=== PATIENT | female | born 1965 | race Caucasian/White ===

== ENCOUNTER → 2018-01-08 | Outpatient (CLI) | payer MEDICARE, OTHER ==
[~2018-01-08] MED LIST: ANEXSIA 7.5-651 EACH PO; TIZANIDINE HCL4 MG PO
== END | disposition home or self-care (01) ==
LOC: CDC 10:38
DX: Z01.810 Encounter for preprocedural cardiovascular examination (principal); K43.2 Incisional hernia without obstruction or gangrene; R00.0 Tachycardia, unspecified; R94.31 Abnormal electrocardiogram [ECG] [EKG]
CPT/HCPCS: 93000

== ENCOUNTER 2018-01-18 06:30 | Day surgery (SDC) | payer OTHER ==
[~2018-01-18] VITALS: Ht 154.9 cm; Wt 83.9 kg
[~2018-01-18 06:30] MED LIST changes: +CYMBALTA60 MG PO; +DERMACINRX THE135 GM TP; +GLYXAMBI 10 MG1 EACH PO; +NEURONTIN600 MG PO; +OTEZLA30 MG PO; +PARAFON FORTE500 MG PO; +PERCOCET 5/31 TABLET PO; +ROBAXIN750 MG PO; +TRESIBA FL200 UNIT/1 SC; +ZESTRIL2.5 MG PO
[2018-01-18 07:25] LABS: HEMOGLOBIN 14.7 G/DL (11.9-15.5); MCV 90.7 FL (83-99)
[2018-01-18 07:58] LABS: CHLORIDE 96 MEQ/L (99-109); CREATININE 0.7 MG/DL (0.6-1.3); GFR ESTIMATE (CALCULATED) > 59 mL/min/; GLUCOSE 289 mg/dL (70-99); SODIUM 135 MEQ/L (136-147); UREA NITROGEN (BUN) 10 mg/dL (9-23)
[2018-01-18 08:00] VITALS: BP 118/86
[2018-01-18] MEDS ORDERED: PERCOCET 5/31 TABLET PO (12:09)
[2018-01-18 12:46] VITALS: BP 109/64
[2018-01-18 13:55] VITALS: BP 113/63
[2018-01-18 15:44] VITALS: BP 109/65
[2018-01-18 18:41] VITALS: BP 116/63
== END 2018-01-18 18:43 | disposition home or self-care (01) ==
LOC: SDC 06:30
PROVIDERS: Surgery
DX: K43.6 Other and unspecified ventral hernia with obstruction, without gangrene (principal); K42.9 Umbilical hernia without obstruction or gangrene; K66.0 Peritoneal adhesions (postprocedural) (postinfection); J44.9 Chronic obstructive pulmonary disease, unspecified; I10 Essential (primary) hypertension; E11.9 Type 2 diabetes mellitus without complications; Z79.4 Long term (current) use of insulin; E78.5 Hyperlipidemia, unspecified; M06.9 Rheumatoid arthritis, unspecified; M41.9 Scoliosis, unspecified; M51.26 Other intervertebral disc displacement, lumbar region; F32.9 Major depressive disorder, single episode, unspecified; Z90.49 Acquired absence of other specified parts of digestive tract; Z90.710 Acquired absence of both cervix and uterus; Z87.891 Personal history of nicotine dependence; Z82.49 Family history of ischemic heart disease and other diseases of the circulatory system; Z83.3 Family history of diabetes mellitus; Z88.0 Allergy status to penicillin
CPT/HCPCS: 80048; 82948; 85014; 85018; J0330; J0690; J1100; J1170; J2001; J2250; J2405; J3010; J3475; S0020